=== PATIENT | female | born 1965 | race Caucasian/White ===

== ENCOUNTER → 2017-04-07 | Outpatient (CLI) | payer OTHER ==
--- NOTE | 2017-04-08 07:17 | XR ---
EXAMINATION TYPE: XR finger RT DATE OF EXAM: 04/07/2017 1:09 PM COMPARISON: NONE HISTORY: Pain TECHNIQUE: Two views are submitted. FINDINGS: There is a displaced fracture involving the body distal phalanx fourth digit. Soft tissue edema noted . IMPRESSION: 1. Displaced fracture distal phalanx fourth digit.
== END | disposition home or self-care (01) ==
LOC: RADXRYALE 12:55
PROVIDERS: ATTEND Internal Medicine
DX: S62.634A Displaced fracture of distal phalanx of right ring finger, initial encounter for closed fracture (principal)

== ENCOUNTER → 2019-10-17 | Outpatient (CLI) | payer OTHER | END | disposition home or self-care (01) | LOC: LABWHC1 12:01 | PROVIDERS: ATTEND Physician Assistant | DX: S92.424A Nondisplaced fracture of distal phalanx of right great toe, initial encounter for closed fracture (principal); S92.344A Nondisplaced fracture of fourth metatarsal bone, right foot, initial encounter for closed fracture; M79.671 Pain in right foot | CPT/HCPCS: 36415; 82306 ==

== ENCOUNTER 2021-05-09 14:29 | Emergency (ER) | payer BC ==
[2021-05-09 14:40] VITALS: TEMP 98.5
[2021-05-09] MEDS ORDERED: KETOROLAC 15 MG/ML 1 ML VIAL IVP STA (16:17)
--- NOTE | 2021-05-09 16:22 | ED ---
Chest Pain HPI - General Chief Complaint: Chest Pain Stated Complaint: chest pain Time Seen by Provider: 05/09/21 16:07 Source: patient Mode of arrival: wheelchair Limitations: no limitations - History of Present Illness Initial Comments: Is a 55-year-old female with a history of GERD who presents emergency department for left-sided chest pain. The patient states that the pain started 3 or 4 days ago. She does not remember any inciting events that caused it. She states that the pain is associated with movements and deep breathing. She states that it's located over her left breast area. She denies any radiation of pain however does state that she gets a little bit arm pain times. She denies any back pain. She denies any shortness of breath. No cough. No fevers or chills. No nausea or vomiting. No diaphoresis. She denies any other acute complaints. - Related Data Home Medications Medication Instructions Recorded Confirmed Multivitamins, Thera [Multivitamin 1 tab PO DAILY 10/03/15 10/03/15 (formulary)] Omeprazole [PriLOSEC] 20 mg PO AC-BRKFST 10/03/15 10/03/15 Venlafaxine HCl ER [Effexor XR] 75 mg PO DAILY 10/03/15 10/03/15 Allergies Allergy/AdvReac Type Severity Reaction Status Date / Time No Known Allergies Allergy Verified 05/09/21 14:40 Review of Systems ROS Statement: Those systems with pertinent positive or pertinent negative responses have been documented in the HPI. ROS Other: All systems not noted in ROS Statement are negative. EKG Findings - EKG Comments: EKG Findings:: EKG showing sinus tachycardia with a rate of 107. There is no abnormal ST 7 changes or T-wave inversions. QTC is 445. Other intervals normal. No ectopy. Past Medical History Past Medical History: GERD/Reflux Additional Past Medical History / Comment(s): just getting over bronchitis finished abx History of Any Multi-Drug Resistant Organisms: None Reported Additional Past Surgical History / Comment(s): carpel tunnel just done 1 wk ago 09/2015. right shoulder surgery, right arthroscopy Past Anesthesia/Blood Transfusion Reactions: No Reported Reaction Past Psychological History: No Psychological Hx Reported Smoking Status: Current every day smoker Past Alcohol Use History: Occasional Past Drug Use History: None Reported - Past Family History Sister(s) Additional Family Medical History / Comment(s): murmur General Exam - General Exam Comments Initial Comments: Constitutional: Awake alert Appears comfortable Head: Normocephalic atraumatic Eyes: no conjunctival injection No scleral icterus EOMI Neck: No JVD Supple Heart: Regular rate rhythm normal S1-S2 no murmurs, there is tenderness to palpation along the left anterior chest wall Lungs: Clear to auscultation bilaterally No wheezing No rales Abdomen: Soft nondistended nontender Extremities: Non edematous DP pulses intact Radial pulses intact Neuro: A&Ox3 No focal neurologic deficits Psych: Appropriate mood and affect Limitations: no limitations Course Vital Signs 05/09/21 14:37 Temperature 98.5 F Pulse Rate 113 H Respiratory 22 Rate Blood Pressure 129/77 O2 Sat by Pulse 95 Oximetry Chest Pain MDM - MDM This 55-year-old female who presents emergency department for left-sided chest pain. The patient states that it started for 5 days ago. The patient's pain is reproducible on exam. Patient was noted to be a little bit tachycardic on EKG however the rest of her vital signs are stable. Patient had chest x-ray and blood work performed her chest x-ray was unremarkable however did note some reticular densities which she was told to follow-up on with her primary doctor. Troponin was negative. EKG was unremarkable. D-dimer was negative. She was given Toradol with improvement in her symptoms. She was encouraged to take NSAIDs at home and follow up with her primary doctor. I suspect this is more of a chest wall etiology however if her pain symptoms persist or worsen she can return emergency Department for further evaluation. All questions were answered. Disposition Clinical Impression: Chest wall pain Disposition: HOME SELF-CARE Condition: Stable Instructions (If sedation given, give patient instructions): Chest Wall Pain (ED) Is patient prescribed a controlled substance at d/c from ED?: No Referrals: Meghan Amador MD [Primary Care Provider] - 1-2 days
[2021-05-09 16:35] LABS: Basophils # (A) 0.1 k/uL (0-0.2); Basophils % (A) 1 %; Eosinophils # (A) 0.1 k/uL (0-0.7); Eosinophils % (A) 1 %; HCT 43.4 % (34.0-46.0); HGB 14.7 gm/dL (11.4-16.0); Lymphocytes # (A) 1.8 k/uL (1.0-4.8); Lymphocytes % (A) 21 %; MCH 31.1 pg (25.0-35.0); MCHC 33.9 g/dL (31.0-37.0); MCV 91.6 fL (80.0-100.0); Mean Platelet Volume 7.7; Monocytes # (A) 0.6 k/uL (0-1.0); Monocytes % (A) 7 %; Neutrophils # (A) 6.1 k/uL (1.3-7.7); Neutrophils % (A) 69 %; Platelet Count 338 k/uL (150-450); RBC 4.74 m/uL (3.80-5.40); RDW 12.9 % (11.5-15.5); WBC 8.8 k/uL (3.8-10.6)
[2021-05-09 16:48] LABS: ALT 11 U/L (4-34); AST 19 U/L (14-36); African American GFR (CKD) >90 (>60 ml/min/1.73 sqM); Alkaline Phosphatase 77 U/L (38-126); Anion Gap 7 mmol/L; Blood Urea Nitrogen 10 mg/dL (7-17); Calcium 9.3 mg/dL (8.4-10.2); Carbon Dioxide 24 mmol/L (22-30); Chloride 109 mmol/L (98-107); Glucose 83 mg/dL (74-99); Non-African American GFR(CKD) >90 (>60 ml/min/1.73 sqM); Potassium 4.3 mmol/L (3.5-5.1); Sodium 140 mmol/L (137-145); Total Bilirubin 0.1 mg/dL (0.2-1.3); Total Protein 6.4 g/dL (6.3-8.2)
--- NOTE | 2021-05-09 17:11 | XR ---
EXAMINATION: XR chest 2V DATE AND TIME: 05/09/2021 4:57 PM CLINICAL INDICATION: PHH; chest pain TECHNIQUE: Departmental protocol COMPARISON: 10/03/2015 radiograph, 10/14/2016 CT FINDINGS: The lungs are clear. Scattered chronic predominantly limited linear coarse reticular shadows are rede monstrated, nonspecific. The pleural spaces are negative. The cardiac silhouette is not enlarged. The remainder of the mediastinal silhouette is unremarkable. The skeletal structures and soft tissues are negative for acute findings. IMPRESSION: NO ACUTE RADIOGRAPHIC PROCESS. Note: Nonurgent follow-up CT suggested, to reassess the pulmonary parenchymal findings on the 2016 CT .
[2021-05-09 17:47] VITALS: BP 155/95; PULSE 76; RESP 16
== END 2021-05-09 17:47 | disposition home or self-care (01) ==
LOC: EC 14:29
DX: R07.89 Other chest pain (principal); K21.9 Gastro-esophageal reflux disease without esophagitis; F17.200 Nicotine dependence, unspecified, uncomplicated; Z79.899 Other long term (current) drug therapy
CPT/HCPCS: 36415; 93005; 85379; 80053; 84484; 85025; 71046; 99285; 96374; J1885

== ENCOUNTER 2021-11-07 08:00 | Emergency (ER) | payer BC ==
[2021-11-07 08:04] VITALS: BP 137/84; PULSE 84; RESP 18; TEMP 98.1
[2021-11-07] MEDS ORDERED: LIDOCAINE 5% PATCH TOPICAL STA (08:10)
[2021-11-07] MEDS ORDERED: HYDROcodone/APAP 5-325MG 1 EACH TAB PO STA (08:10)
--- NOTE | 2021-11-07 08:16 | ED ---
General Adult HPI - General Chief complaint: Chest Pain Stated complaint: rib pain Time Seen by Provider: 11/07/21 08:05 Source: patient, RN notes reviewed, old records reviewed Mode of arrival: ambulatory Limitations: no limitations - History of Present Illness Initial comments: She is a 56-year-old female with an unremarkable past medical history presents emergency Department complaining of right-sided rib pain. It has been present since last week. She states that she was leaning over a large garbage can try to get something out of the bottom was placing all her weight on the right side of her ribs. She felt something "pop" at that time. Her pain has slowly progressively gotten worse over the last week. Does not radiate. It does not move. She denies any other chest pain. Describes it as sharp, achy pain that is worse with movement and sitting in certain positions. It does improve when she places pressure on it. She became concerned, she states it is very hard to control the pain today. She wanted to be evaluated for possible bony injury. She denies any nausea, vomiting, other chest pain. Denies any shortness breath, difficulty in breathing. Denies any urinary complaints, bowel complaints. Denies any weakness, numbness, sick contacts. His no fevers, chills, cough. His no other acute complaints at this time. - Related Data Home Medications Medication Instructions Recorded Confirmed Multivitamins, Thera [Multivitamin 1 tab PO DAILY 10/03/15 10/03/15 (formulary)] Omeprazole [PriLOSEC] 20 mg PO AC-BRKFST 10/03/15 10/03/15 Venlafaxine HCl ER [Effexor XR] 75 mg PO DAILY 10/03/15 10/03/15 Previous Rx's Medication Instructions Recorded HYDROcodone/APAP 5-325MG [[place] 5] 1 each PO Q6HR PRN 3 Days #12 tab 11/07/21 Ibuprofen [Motrin] 800 mg PO Q8H PRN 14 Days #42 tab 11/07/21 Lidocaine 5% Patch [Lidoderm 5% 1 patch TOPICAL DAILY PRN 14 Days 11/07/21 Patch] #14 patch Allergies Allergy/AdvReac Type Severity Reaction Status Date / Time No Known Allergies Allergy Verified 05/09/21 14:40 Review of Systems ROS Statement: Those systems with pertinent positive or pertinent negative responses have been documented in the HPI. Review of Systems: CONST: Denies fever EYES: Denies blurry vision ENT: Denies nasal congestion C/V: Denies Chest pain RESP: Denies shortness of breath GI: Denies abdominal pain : Denies dysuria SKIN: Denies rash. MSK: Endorses right-sided rib pain. NEURO: Denies headache ROS Other: All systems not noted in ROS Statement are negative. Past Medical History Past Medical History: GERD/Reflux Additional Past Medical History / Comment(s): just getting over bronchitis finished abx History of Any Multi-Drug Resistant Organisms: None Reported Additional Past Surgical History / Comment(s): carpel tunnel just done 1 wk ago 09/2015. right shoulder surgery, right arthroscopy, oral Past Anesthesia/Blood Transfusion Reactions: No Reported Reaction Past Psychological History: No Psychological Hx Reported Smoking Status: Current every day smoker Past Alcohol Use History: Occasional Past Drug Use History: None Reported - Past Family History Sister(s) Additional Family Medical History / Comment(s): murmur General Exam - General Exam Comments Initial Comments: General: Appears in mild distress secondary to the pain. HEAD: Normal with no signs of head trauma. EYES: EOMI ENT: Hearing grossly intact, normal oropharynx. RESPIRATORY: Clear breath sounds bilaterally. No wheezes, rales, or rhonchi. C/V: Regular rate and rhythm. S1 and S2 auscultated, no edema, peripheral pulses 2+ and intact throughout ABD: Abd is soft, nontender, nondistended. No guarding. No rebound tenderness. No peritoneal signs. EXT: Patient has tenderness palpation over the right-sided lower ribs in the midaxillary to anterior axillary lines. It is over the inferior most ribs. No skin changes over top to suggest bruising. SKIN: No rashes or lesions observed on exposed skin. NEURO: Alert and oriented 4. No focal sensory or strength deficits. Limitations: no limitations Course Vital Signs 11/07/21 08:01 Temperature 98.1 F Pulse Rate 84 Respiratory 18 Rate Blood Pressure 137/84 O2 Sat by Pulse 99 Oximetry Medical Decision Making - Medical Decision Making Based on the patient's presentation and physical exam, I'm concerned for possible bony traumatic injury the patient's right inferior ribs in the midaxillary and anterior axillary line. She has no other findings on acute exam. I have no concern for cardiac etiology for her current symptoms due to the clear onset following a specific physical incident and having no other forms of chest pain. The pain is reproducible on palpation is very specific to the specific ribs. She was in agreement. We'll provide her with analgesia with [place] as well as lidocaine patch. Rib x-ray will also be obtained. She was in agreement this plan. We will obtain a screening EKG due to the patient being female, over the age of 50. She was in agreement this plan.EKG showed no signs of acute ischemia. Chest x-ray revealed rib fractures in the right lateral sixth and seventh ribs. These are nondisplaced. No other acute findings. On reevaluation, patient's pain is better under control. I did discuss with her the findings of her EKG and chest x-ray. I explained that she is stable for discharge home with pain control. She'll be given an incentive spirometer. She was in agreement this plan. I'll provide contact information with follow-up with orthopedic surgery. I will provide the patient with a prescription for lidocaine patch, ibuprofen, [place]. I instructed the patient to follow up with their PCP in the next 3 days. I provided contact information for follow up with orthopedics. I explained that the patient should return to the emergency department if they experience any wor sening symptoms. Strict return precautions were discussed with the patient. The patient expressed understanding of these instructions. I answered all questions that the patient had. The patient was discharged home in fair condition with their prescriptions and follow up information. - EKG Data -: EKG Interpreted by Me EKG Comments: 12-lead Electrocardiogram Interpretation Note EKG was reviewed and interpreted by myself. 12-lead ECG performed at 0832 is interpreted by me as revealing normal sinus rhythm at a rate of 73 beats per minute. [place] is normal. [place] interval is 160 ms, QRS duration 78 ms, QTc is 416 ms.. There were no ST or T wave abnormalities to suggest myocardial ischemia or injury. R wave progression across the precordium was satisfactory. By my interpretation this EKG is non-diagnostic for acute ischemia. Disposition Clinical Impression: Ribs, multiple fractures Disposition: HOME SELF-CARE Condition: Fair Instructions (If sedation given, give patient instructions): Rib Fracture (ED) Prescriptions: Lidocaine 5% Patch [Lidoderm 5% Patch] 1 patch TOPICAL DAILY PRN 14 Days #14 patch PRN Reason: Pain Ibuprofen [Motrin] 800 mg PO Q8H PRN 14 Days #42 tab PRN Reason: Pain HYDROcodone/APAP 5-325MG [[place] 5] 1 each PO Q6HR PRN 3 Days #12 tab PRN Reason: Pain Is patient prescribed a controlled substance at d/c from ED?: No Referrals: Meghan Amador MD [Primary Care Provider] - 1-2 days [employer] PAC [PHYSICIAN TC OPERATOR] - 1-2 days
--- NOTE | 2021-11-07 08:44 | XR ---
EXAMINATION TYPE: PA chest and bilateral rib series DATE OF EXAM: 11/07/2021 COMPARISON: 05/09/2021 HISTORY: 56-year-old female trauma, pain, right lower rib pain. TECHNIQUE: 9 views FINDINGS: Heart normal size. Hyperinflation. Mild biapical pleural-parenchymal scarring. Some mild peribronchia l cuffing. Right: Old right fourth posterolateral rib fracture deformity. There are nondisplaced fractures of the right lateral sixth and seventh ribs. Left: No displaced rib fracture seen. IMPRESSION: 1. COPD. No acute cardiopulmonary process. 2. Nondisplaced fractures of the right lateral sixth and seventh ribs. 3. Old healed fracture deformity right fourth posterolateral rib.
== END 2021-11-07 08:57 | disposition home or self-care (01) ==
LOC: EC 08:00
DX: S22.41XA Multiple fractures of ribs, right side, initial encounter for closed fracture (principal); K21.9 Gastro-esophageal reflux disease without esophagitis; F17.200 Nicotine dependence, unspecified, uncomplicated; Z79.899 Other long term (current) drug therapy; X50.1XXA Overexertion from prolonged static or awkward postures, initial encounter
CPT/HCPCS: 71111; 93005; 99283

== ENCOUNTER → 2023-09-02 | Outpatient (CLI) | payer OTHER ==
--- NOTE | 2023-09-02 14:04 | XR ---
EXAMINATION TYPE: XR finger LT DATE OF EXAM: 09/02/2023 CLINICAL HISTORY: pain TECHNIQUE: 3 views of the left second digit are submitted. COMPARISON: None FINDINGS: No displaced fracture is seen with certainty. Joint spaces are well-preserved. Soft tissue laceration noted distally without evidence radiopaque foreign body. IMPRESSION: No acute displaced fracture or dislocation.
== END | disposition home or self-care (01) ==
LOC: RADXRMAIN 13:35
PROVIDERS: ATTEND Emergency Medicine
DX: S67.191A Crushing injury of left index finger, initial encounter (principal); S61.201A Unspecified open wound of left index finger without damage to nail, initial encounter; X58.XXXA Exposure to other specified factors, initial encounter

== ENCOUNTER → 2023-09-28 | Outpatient (CLI) | payer BC ==
[2023-09-28 16:53] LABS: Basophils # (A) 0.08 X 10*3/uL (0.00-0.10); Basophils % (A) 1.4 %; Eosinophils # (A) 0.08 X 10*3/uL (0.04-0.35); Eosinophils % (A) 1.4 %; HCT 45.5 % (37.2-46.3); HGB 14.7 g/dL (12.0-15.0); Lymphocytes # (A) 1.54 X 10*3/uL (0.90-5.00); Lymphocytes % (A) 27.8 %; MCH 29.8 pg (27.0-32.0); MCHC 32.3 g/dL (32.0-37.0); MCV 92.3 FL (80.0-97.0); Mean Platelet Volume 10.7 FL (9.5-12.2); Monocytes # (A) 0.37 X 10*3/uL (0.20-1.00); Monocytes % (A) 6.7 %; NRBC Per 100 WBC 0 X 10*3/uL (0.00-0.01); Neutrophils # (A) 3.44 X 10*3/uL (1.80-7.70); Neutrophils % (A) 62.3 %; Platelet Count 315 X 10*3/uL (140-440); RBC 4.93 X 10*6/uL (4.10-5.20); RDW 12.5 % (11.5-14.5); WBC 5.53 X 10*3/uL (4.50-10.00)
[2023-09-28 18:38] LABS: ALT 7 U/L (8-44); AST 12 U/L (13-35); Albumin 4.4 g/dL (3.8-4.9); Albumin/Globulin Ratio 2.32 Ratio (1.60-3.17); Alkaline Phosphatase 77 U/L (41-126); BUN/Creat Ratio 13.25 Ratio (12.00-20.00); Blood Urea Nitrogen 10.6 mg/dL (9.0-27.0); Carbon Dioxide 26.5 mmol/L (21.6-31.8); Chloride 108 mmol/L (96-109); Chol/HDL Ratio 3.12 Ratio; Globulin 1.9 g/dL (1.6-3.3); Glucose 92 mg/dL (70-110); LDL Cholesterol,Calculated 75.6 mg/dL (0.0-131.0); Potassium 4.7 mmol/L (3.5-5.5); Sodium 144 mmol/L (135-145); Total Bilirubin 0.4 mg/dL (0.3-1.2); Total Protein 6.3 g/dL (6.2-8.2); VLDL Calculation 19.52 mg/dL (5.00-40.00)
== END | disposition home or self-care (01) ==
LOC: LABWHC1 08:03
PROVIDERS: ATTEND Family Medicine
DX: Z00.00 Encounter for general adult medical examination without abnormal findings (principal)
CPT/HCPCS: 36415; 80053; 80061; 83036; 84443; 85025